=== PATIENT | male | born 1995 | race Caucasian/White ===

== ENCOUNTER 2017-07-13 05:30 | Emergency (ER) | payer OTHER ==
[~2017-07-13] VITALS: Ht 175.3 cm; Wt 70.8 kg
[~2017-07-13 05:30] MED LIST: SKELAXIN800 MG PO
[2017-07-13 05:32] VITALS: BP 151/94
[2017-07-13] MEDS ORDERED: ISENTRESS400 MG PO (07:35)
[2017-07-13] MEDS ORDERED: TRUVADA1 TABLET PO (07:35)
[2017-07-13 07:58] LABS: BASOPHIL (%) 0.4 % (0-1); EOSINOPHIL (%) 0.3 % (0-5); HEMATOCRIT 40.1 % (38.0-50.0); HEMOGLOBIN 13.8 G/DL (12.5-16.6); IMMATURE GRANULOCYTE (%) 0.1 % (0.0-0.7); LYMPHOCYTE (%) 32.1 % (15-42); LYMPHOCYTE COUNT 2.4 K/uL (1.0-2.8); MCH 29.1 PG (29.0-34.0); MCHC 34.4 G/DL (30.0-36.0); MCV 84.4 FL (86-99); MONOCYTE (%) 7.7 % (3-12); MONOCYTE COUNT 0.6 K/uL (0-0.8); NEUTROPHIL (%) 59.4 % (45-76); NEUTROPHIL COUNT 4.4 K/uL (1.8-6.4); PLATELET COUNT 327 K/uL (156-360); RBC DIS.WIDTH-CV 12.1 % (11.8-14.6); RBC DIS.WIDTH-SD 37.3 % (39-53); RED BLOOD COUNT 4.75 M/uL (4.00-5.50); WHITE BLOOD COUNT 7.4 K/uL (4.1-10.2)
[2017-07-13 08:10] LABS: ALBUMIN 4.7 G/DL (3.2-4.8); ALKALINE PHOSPHATASE 74 IU/L (3-129); ALT (GPT) 13 IU/L (3-49); AST (GOT) 16 IU/L (2-34); CHLORIDE 100 MEQ/L (99-109); CREATININE 1.2 MG/DL (0.6-1.3); DIRECT BILIRUBIN 0.1 mg/dL (0.0-0.3); GFR ESTIMATE (CALCULATED) > 59 mL/min/ (58.99-99999); GLUCOSE 92 mg/dL (70-99); POTASSIUM 3.6 MEQ/L (3.7-5.4); SODIUM 138 MEQ/L (136-147); TOTAL BILIRUBIN 0.5 MG/DL (0.0-1.0); TOTAL PROTEIN 7.3 G/DL (6.4-8.3); UREA NITROGEN (BUN) 12 mg/dL (9-23)
[2017-07-13 11:27] LABS: HEPATITIS B SURFACE ANTIGEN Nonreactive
[2017-07-13 11:28] LABS: HEPATITIS C ANTIBODY Nonreactive; HIV-1/2 AB/AG COMBO Nonreactive
[2017-07-13 11:29] LABS: ANTI-HEPATITIS B CORE (TOTAL) Nonreactive
[2017-07-13 11:31] LABS: HEPATITIS B SURFACE ANTIBODY REACTIVE
[2017-07-14] MEDS ORDERED: TRUVADA1 TABLET PO (21:06)
[2017-07-14] MEDS ORDERED: ISENTRESS400 MG PO (21:06)
== END 2017-07-13 07:49 | disposition home or self-care (01) ==
LOC: EME 05:30
PROVIDERS: Emergency Medicine
DX: Z77.21 Contact with and (suspected) exposure to potentially hazardous body fluids (principal); W46.1XXA Contact with contaminated hypodermic needle, initial encounter; Y99.0 Civilian activity done for income or pay
CPT/HCPCS: 80053; 82248; 84100; 85025; 86704; 86706; 86803; 87340; 87389; 99281; 99284

== ENCOUNTER 2017-07-14 19:44 | Emergency (ER) | payer OTHER ==
[~2017-07-14] VITALS: Ht 175.3 cm; Wt 70.0 kg
[~2017-07-14 19:44] MED LIST changes: +ISENTRESS400 MG PO; +TRUVADA1 TABLET PO
[2017-07-14 19:55] VITALS: BP 131/80
[2017-07-14] MEDS ORDERED: TRUVADA1 TABLET PO (21:06)
[2017-07-14] MEDS ORDERED: ISENTRESS400 MG PO (21:06)
== END 2017-07-14 21:43 | disposition home or self-care (01) ==
LOC: EME 19:44
DX: Z77.21 Contact with and (suspected) exposure to potentially hazardous body fluids (principal); Y99.0 Civilian activity done for income or pay
CPT/HCPCS: 99281; 99283